=== PATIENT | male | born 1945 | race Caucasian/White ===

== ENCOUNTER 2022-10-07 23:53 | Emergency (ER) | payer MEDICARE ==
[2022-10-08] MEDS ORDERED: Sodium Chloride 0.9% 1000 ML 1,000 ML IV STA ×2 (00:33→01:07)
[2022-10-08] MEDS ORDERED: Sodium Chloride 0.9% 1000 ML 1,000 ML ONE ×2 (00:34→01:11)
[2022-10-08 00:45] LABS: Absolute Neutrophil Ct (ANC) 7.52 x10^3/uL (1.4-6.9); BASOPHIL % 0.1 % (0.0-0.4); Basophil (Absolute #) 0.01 x10^3/uL (0-0.4); Eosinophil (Absolute #) 0 x10^3/uL (0-0.5); Hematocrit 35.5 % (42-50); IMMATURE GRAN # 0.03 x10^3u/L (0.00-0.03); IMMATURE GRAN % 0.3 % (0.00-0.4); Lymphocyte (Absolute #) 0.65 x10^3/uL (1.0-4.6); Lymphocytes % 7.1 % (24.0-44.0); Mean Cell Volume 95.7 fL (78-100); Mean Corpuscular Hemoglobin 32.3 pg (26-32); Mean Corpuscular Hgb Concent. 33.8 g/dL (32-36); Mean Platelet Volume 9.5 fL (7.5-11.0); Monocytes % 9.9 % (0.0-12.0); Neutrophil % 82.6 % (36.0-66.0); Platelet Count 361 x10^3/uL (150-450); Red Blood Count 3.71 x10^6/uL (4.1-5.6); Red Cell Distribution Width 12.1 % (11.5-14.0); White Blood Count 9.1 x10^3/uL (4.0-10.5)
--- NOTE | 2022-10-08 00:47 | ERPHSYRPT ---
- History of Present Illness Source: patient, other () Exam Limitations: other () Patient Subjective Stated Complaint: pt states he had hernia surgery this am with dr jones and has voided a little less than 200ml since coming home. states he was told by discharging nurses to come to er if he did not have at lease 200ml out by midnight Triage Nursing Assessment: pt alert and oriented, answers questions approp. pt ambulatory with steady gait noted, respirations nonlabored. 3 incision sites to abd covered with drsgs- cdi. bowel sounds hypo. Physician History: 77 yo wm who underwent a laparoscopic L inguinal hernia repair today complains of decreased urination. Pt states that he was told to come to the ER if he does not produce 200ml of urine by 00:00, and he was just short of 200ml. He denies urinary retention. Pt has had nausea/vomiting x3 which was most likely caused by his [place]. He is a Type1 diabetic who uses an insulin pump, and glucose is in the 200's. Chest pain/dyspnea/fever are all denied. His pain is minimal at best. Timing/Duration: today Severity: mild Modifying Factors: Improves With: nothing Associated Symptoms: denies symptoms, nausea, vomiting Allergies/Adverse Reactions: No Known Drug Allergies Allergy (Verified 10/08/22 00:31) Home Medications: Amlodipine Besylate 5 mg [Norvasc 5 mg] 5 mg PO DAILY 10/08/22 [History] Insulin Aspart [NovoLOG Insulin] 0 unit SQ UD 10/08/22 [History] Losartan Potassium 50 mg [Cozaar 50 MG] 50 mg PO BID 10/08/22 [History] Pravastatin Sodium 20 mg PO HS 10/08/22 [History] hydroCHLOROthiazide [Hydrochlorothiazide] 12.5 mg PO BID 10/08/22 [History] Hx Tetanus, Diphtheria Vaccination/Date Given: Yes Hx Influenza Vaccination/Date Given: Yes Hx Pneumococcal Vaccination/Date Given: Yes Immunizations Up to Date: Yes Travel Risk - International Travel Have you traveled outside of the country in past 3 weeks: No - Coronavirus Screening Are you exhibiting any of the following symptoms?: No Close contact with a COVID-19 positive Pt in past 14-21 Days: No - Vaccine Status Have you recieved a Covid-19 vaccination: Yes 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 - Vaccination Dates Date of 2cond Vaccination (if applicable): 11/16/2020 - Review of Systems Constitutional: No Symptoms Eyes: No Symptoms Ears, Nose, & Throat: No Symptoms Respiratory: No Symptoms Cardiac: No Symptoms Abdominal/Gastrointestinal: No Symptoms, Nausea, Vomiting Genitourinary Symptoms: No Symptoms Musculoskeletal: No Symptoms Skin: No Symptoms Neurological: No Symptoms Psychological: No Symptoms Endocrine: No Symptoms Hematologic/Lymphatic: No Symptoms Immunological/Allergic: No Symptoms - Past Medical History ENT History: Cataracts Cardiac History: High Cholesterol, Hypertension Endocrine Medical History: Diabetes Type I - Past Surgical History Past Surgical History: Yes Musculoskeletal: Orthopedic Surgery Other Surgical History: foot surgery, eyelid lift - Social History Smoking Status: Never smoker Exposure to second hand smoke: No Drug Use: none Patient Lives Alone: No - Nursing Vital Signs Nursing Vital Signs: Initial Vital Signs Temperature 98.4 F 10/08/22 00:01 Pulse Rate 80 10/08/22 00:01 Respiratory Rate 18 10/08/22 00:01 Blood Pressure 130/58 10/08/22 00:01 O2 Sat by Pulse Oximetry 98 10/08/22 00:01 Pain Scale Pain Intensity 3 WNL - Physical Exam General Appearance: no apparent distress, anxiety Eye Exam: PERRL/EOMI, eyes nml inspection Ears, Nose, Throat Exam: normal ENT inspection, TMs normal, pharynx normal, moist mucous membranes Neck Exam: normal inspection, non-tender, supple, full range of motion, No meningismus, No mass, No Brudzinski, No Kernig's, No carotid bruit Respiratory Exam: normal breath sounds, lungs clear, airway intact, No respiratory distress Cardiovascular Exam: regular rate/rhythm, normal heart sounds, normal peripheral pulses, capillary refill <2 sec, No murmur Gastrointestinal/Abdomen Exam: soft, normal bowel sounds, other (laparoscopy incisions clean/dry/intact), No tenderness Back Exam: normal inspection, normal range of motion, No CVA tenderness Extremity Exam: normal inspection, normal range of motion Neurologic Exam: alert, oriented x 3, cooperative, vp analytics II-XII nml as tested, normal mood/affect, nml cerebellar function, nml station & gait, sensation nml Skin Exam: normal color, warm, dry Lymphatic Exam: adenopathy SpO2 Interpretation: normal SpO2: 98 O2 Delivery: Room Air - Course Nursing assessment & vital signs reviewed: Yes - CT Exams Abdomen/Pelvis CT Interpretation: Discussed w/radiologist, Tele-radiologist Report (Small amount of free intraperitoneal gas most likely related to Lap inguinal hernia today/rad called w report/Small amount of gas within urinary bladder) Ordered Tests: Active Orders 24 hr Category Date Time Status IV Insertion STAT Care 10/08/22 00:43 Completed ABDOMEN AND PELVIS W/0 CONTRAS [CT] Stat Exams 10/08/22 00:33 Taken CBC W DIFF Stat Lab 10/08/22 00:40 Completed CMP Stat Lab 10/08/22 00:40 Completed CULTURE,URINE Stat Lab 10/08/22 01:23 Received UA W/RFX UR CULTURE Stat Lab 10/08/22 01:23 Completed Medication Summary Discontinued Medications Generic Name Dose Route Start Last Admin Trade Name Freq PRN Reason Stop Dose Admin Sodium Chloride 1,000 mls @ 999 mls/hr 10/08/22 00:33 10/08/22 02:57 Sodium Chloride 0.9% 1000 Ml IV 10/08/22 01:33 Infused .Q1H1M STA Infusion Sodium Chloride Confirm 10/08/22 00:34 Sodium Chloride 0.9% 1000 Ml Administered 10/08/22 00:35 Dose 1,000 mls @ ud .ROUTE .STK-MED ONE Sodium Chloride 1,000 mls @ 999 mls/hr 10/08/22 01:07 10/08/22 02:57 Sodium Chloride 0.9% 1000 Ml IV 10/08/22 02:07 Infused .Q1H1M STA Infusion Sodium Chloride Confirm 10/08/22 01:11 Sodium Chloride 0.9% 1000 Ml Administered 10/08/22 01:12 Dose 1,000 mls @ ud .ROUTE .STK-MED ONE Ceftriaxone Sodium/Dextrose 1 g in 50 mls @ 100 mls/hr 10/08/22 01:46 10/08/22 02:58 Rocephin 1 Gm-D5w 50 Ml Bag IV 10/08/22 02:15 Infused STAT STA Infusion Ceftriaxone Sodium/Dextrose Confirm 10/08/22 01:50 Rocephin 1 Gm-D5w 50 Ml Bag Administered 10/08/22 01:51 Dose 1 g in 50 mls @ ud IV .STK-MED ONE Lab/Rad Data: Laboratory Result Diagrams 10/08/22 00:40 10/08/22 00:40 Laboratory Results 10/08/22 10/08/22 10/08/22 Range/Units 01: 00:40 00:40 WBC 9.1 (4.0-10.5) x10^3/uL RBC 3.71 L (4.1-5.6) x10^6/uL Hgb 12.0 L (12.5-18.0) g/dL Hct 35.5 L (42-50) % MCV 95.7 (78-100) fL MCH 32.3 H (26-32) pg MCHC 33.8 (32-36) g/dL RDW 12.1 (11.5-14.0) % Plt Count 361 (150-450) x10^3/uL MPV 9.5 (7.5-11.0) fL Gran % 82.6 H (36.0-66.0) % Immature Gran % (Auto) 0.3 (0.00-0.4) % Nucleat RBC Rel Count 0.0 (0.00-0.1) % Eos # (Auto) 0 (0-0.5) x10^3/uL Immature Gran # (Auto) 0.03 (0.00-0.03) x10^3u/L Absolute Lymphs (auto) 0.65 L (1.0-4.6) x10^3/uL Absolute Monos (auto) 0.90 (0.0-1.3) x10^3/uL Absolute Nucleated RBC 0.00 (0.00-0.01) x10^3u/L Lymphocytes % 7.1 L (24.0-44.0) % Monocytes % 9.9 (0.0-12.0) % Eosinophils % 0.0 (0.00-5.0) % Basophils % 0.1 (0.0-0.4) % Absolute Granulocytes 7.52 H (1.4-6.9) x10^3/uL Basophils # 0.01 (0-0.4) x10^3/uL Sodium 129 L (137-145) mmol/L Potassium 3.9 (3.5-5.1) mmol/L Chloride 91 L (98-107) mmol/L Carbon Dioxide 27 (22-30) mmol/L Anion Gap 14.2 (5-15) MEQ/L BUN 39 H (9-20) mg/dL Creatinine 1.40 H (0.66-1.25) mg/dL Estimated GFR 52.5 ML/MIN Glucose 190 H (74-106) mg/dL Calcium 8.7 (8.4-10.2) mg/dL Total Bilirubin 1.30 (0.2-1.3) mg/dL AST 38 (17-59) U/L ALT 23 (0-50) U/L Alkaline Phosphatase 64 (38-126) U/L Serum Total Protein 6.9 (6.3-8.2) g/dL Albumin 4.2 (3.5-5.0) g/dL Urine Color Yellow (Yellow) Urine Appearance Cloudy A (Clear) Urine pH 5.5 (4.6-8.0) Ur Specific [place] 1.020 (1.005-1.030) Urine Protein Trace A (Negative) Urine Glucose (UA) Negative (Negative) mg/dL Urine Ketones Trace A (Negative) Urine Blood Negative (Negative) Urine Nitrite Negative (Negative) Urine Bilirubin Negative (Negative) Urine Urobilinogen 0.2 (0.2) mg/dL Ur Leukocyte Esterase Small A (Negative) U Hyaline Cast (Auto) 6-10 A (0-2) /LPF Urine Microscopic RBC 6-10 A (0-5) /HPF Urine Microscopic WBC 6-10 A (0-5) /HPF Ur Epithelial Cells Rare (None Seen) /HPF Urine Bacteria None Seen (None Seen) /HPF Urine Culture Reflexed YES (NO) - Progress Progress: improved Progress Note: 10/08/22 01:30 Nursing note and vital sides reviewed No food or housing insecurities noted Guzman placed and 150ml drained Telerad called and stated that pt has small amount of free air which is most l ikely due to laparoscopic inguinal hernia 1L NS x2 for pre-renal azotemia 1gm IV rocephin for UTI Urine output increased and Guzman removed All lab results reviewed and shared w pt 10/08/22 02:26 10/08/22 02:39 10/08/22 02:41 Counseled pt/family regarding: lab results, diagnosis, need for follow-up Medical Desision Making - Diagnostic Testing Diagnostic test were ordered, analyzed, and reviewed by me: Yes Radiological Interpretation: Discussed w/ radiologist, Teleradiologist Report - Risk of complications The pt has a mod risk of morbidity or mortality based on: Need for prescription drug management - Departure Departure Disposition: Home Clinical Impression: UTI (urinary tract infection), Mild dehydration Condition: Stable Critical Care Time: No Referrals: ADALID SÁNCHEZ MD [Primary Care Provider] - Follow up/PCP as directed Instructions: Dehydration, Adult (DC), Urinary Tract Infection, Adult (DC) Additional Instructions: Fluids Follow up with your surgeon on Monday Bactrim twice a day for 3 days Return to ER as needed Prescriptions: Smz/Tmp Ds Tablet [Bactrim Ds Tablet] 1 tab PO Q12H 3 Days #6 tablet
[2022-10-08 01:01] LABS: ALBUMIN 4.2 g/dL (3.5-5.0); ANION GAP 14.2 MEQ/L (5-15); BILIRUBIN,TOTAL 1.3 mg/dL (0.2-1.3); Calcium 8.7 mg/dL (8.4-10.2); Creatinine 1 1.4 mg/dL (0.66-1.25); EST GLOMERULAR FILTRATION RATE 52.5 ML/MIN; Potassium 3.9 mmol/L (3.5-5.1); Total Protein 6.9 g/dL (6.3-8.2)
[2022-10-08 01:42] LABS: Appearance Cloudy (Clear); Bacteria None Seen /HPF (None Seen); Bilirubin Negative (Negative); Blood Negative (Negative); Epithelial Cells Rare /HPF (None Seen); Glucose, Urine Negative (Negative); Ketones Trace (Negative); Leukocyte Esterase Small (Negative); Nitrite Negative (Negative); Ph 5.5 (4.6-8.0); Protein,Urine Dip Trace (Negative); Urobilinogen 0.2 mg/dL (0.2)
[2022-10-08 01:44] LABS: ADD URINE CULTURE? YES (NO)
[2022-10-08] MEDS ORDERED: ROCEPHIN 1 Gm-D5w 50 ml Bag** 1 G/50 ML IVPB IV STA (01:46)
[2022-10-08] MEDS ORDERED: ROCEPHIN 1 Gm-D5w 50 ml Bag** 1 G/50 ML IVPB IV ONE (01:50)
[2022-10-08 02:59] VITALS: BP 118/49; PULSE 65
[2022-10-08 04:55] VITALS: O2SAT 98
--- NOTE | 2022-10-08 08:19 | XRAY ---
Indication: Abdomen pain. Status post hernia surgery one day earlier. Dehydration. Multiple contiguous axial images obtained through the abdomen and pelvis without contrast. Comparison: None Lung bases demonstrates mild bibasilar subsegmental atelectasis/scarring. No infiltrate or effusion. Heart is not enlarged. Small hiatal hernia. Small free air throughout abdomen/pelvis, tiny left groin subcutaneous air bubbles, and tiny air bubbles both scrotum are all presumed postoperative. No free fluid or walled off fluid collection. Noncontrasted stomach and bowel loops appear nonobstructed with normal appendix. Mild diffuse scattered colonic fecal debris throughout. Urinary bladder demonstrates intraluminal air bubbles either iatrogenic from recent catheterization versus gas-forming infection. Gallbladder moderately distended without gallstones or biliary distention. Mild fatty liver. Remaining liver, gallbladder, pancreas, spleen, adrenal glands, kidneys, ureters, and bladder are unremarkable for noncontrast exam. Mild scattered aortoiliac calcifications without AAA. Osseous structures intact with osteopenia, moderate degenerative changes throughout thoracolumbar spine, moderate dextroscoliosis centered at L3, and moderate degenerative changes both hips. No ventral hernia. Incidental bilateral vasectomy clips. Impression: 1. Status post left inguinal hernia repair with postoperative changes. 2. Urinary bladder intraluminal air bubbles either iatrogenic versus gas-forming infection. 3. Mild diffuse fecal stasis. 4. Distended gallbladder without gallstones. 5. Chronic findings including hiatal hernia, fatty liver, arteriosclerotic disease, and chronic bony findings. Comment: Preliminary interpretation made by [facility]. No critical discrepancy.
== END 2022-10-08 03:05 | disposition home or self-care (01) ==
LOC: ED 23:53
DX: N39.0 Urinary tract infection, site not specified (principal); E86.0 Dehydration; R11.2 Nausea with vomiting, unspecified; E10.65 Type 1 diabetes mellitus with hyperglycemia; E78.5 Hyperlipidemia, unspecified; I10 Essential (primary) hypertension; Z96.41 Presence of insulin pump (external) (internal); Z79.4 Long term (current) use of insulin; Z79.891 Long term (current) use of opiate analgesic; Z79.899 Other long term (current) drug therapy
CPT/HCPCS: 36000; 36415; 74176; 80053; 81001; 85025; 87086; 96360; 99284; P9612; 96365; J0696

== ENCOUNTER 2024-02-18 10:36 | Emergency (ER) | payer MEDICARE ==
[2024-02-18 11:01] VITALS: TEMP 96.8
[2024-02-18] MEDS ORDERED: Sodium Chloride 0.9% 1000 ML 1,000 ML ONE ×2 (11:04→13:14)
[2024-02-18] MEDS: Sodium Chloride 0.9% 1000 ML 1,000 ML IV SCH (11:04)
--- NOTE | 2024-02-18 11:04 | ERPHSYRPT ---
- History of Present Illness Time Seen by Provider: 02/18/24 10:38 Source: patient, EMS Exam Limitations: no limitations Physician History: Reportedly pt was at [employer] and had a syncopal episode with tremors and diaphoresis, was given glucose and revived. EMS states pt had a B.S. of 155 and BP of 115/58 and had about 20 seconds of LOC and tremors. Pt denies any chest p ain, shortness of air, fever, headache, abdominal pain, nausea, vomiting; admits to a cough productive of yellow phlegm for the past month. Allergies/Adverse Reactions: No Known Drug Allergies Allergy (Verified 02/18/24 11:02) Home Medications: Amlodipine Besylate 5 mg [Norvasc 5 mg] 5 mg PO DAILY 10/08/22 [History] Insulin Aspart [NovoLOG Insulin] 0 unit SQ UD 10/08/22 [History] Losartan Potassium 50 mg [Cozaar 50 MG] 50 mg PO BID 10/08/22 [History] Pravastatin Sodium 20 mg PO HS 10/08/22 [History] hydroCHLOROthiazide [Hydrochlorothiazide] 12.5 mg PO BID 10/08/22 [History] Hx Tetanus, Diphtheria Vaccination/Date Given: Yes Hx Influenza Vaccination/Date Given: Yes Hx Pneumococcal Vaccination/Date Given: Yes - Past Medical History ENT History: Cataracts Cardiac History: High Cholesterol, Hypertension Endocrine Medical History: Diabetes Type I - Past Surgical History Past Surgical History: Yes Musculoskeletal: Orthopedic Surgery Other Surgical History: foot surgery, eyelid lift - Social History Smoking Status: Never smoker Exposure to second hand smoke: No Drug Use: none Patient Lives Alone: No - Review of Systems Constitutional: No Fever Respiratory: Cough, No Dyspnea Cardiac: No Chest Pain Abdominal/Gastrointestinal: No Abdominal Pain, No Nausea, No Vomiting Genitourinary Symptoms: No Dysuria Neurological: No Headache Physical Exam - Nursing Vital Signs Nursing Vital Signs: Initial Vital Signs Temperature 96.8 F 02/18/24 10:47 Pulse Rate 72 02/18/24 10:47 Respiratory Rate 19 02/18/24 10:47 Blood Pressure 124/63 02/18/24 10:47 O2 Sat by Pulse Oximetry 97 02/18/24 10:47 Pain Scale Pain Intensity 0 - Spreckels Coma Scale Best Eye Response (Spreckels): (4) open spontaneously Best Verbal Response (Spreckels): (5) oriented Best Motor Response (Mohini): (6) obeys commands Spreckels Total: 15 - Physical Exam General Appearance: alert Eye Exam: bilateral eye: PERRL, EOMI Ears, Nose, Throat Exam: TMs normal, pharyngeal erythema (mild) Neck Exam: normal inspection Respiratory: lungs clear, airway intact Cardiovascular: normal heart sounds Gastrointestinal: normal bowel sounds Back Exam: normal inspection Extremity Exam: normal range of motion Peripheral Pulses: dorsalis-pedis (R): 1+, dorsalis-pedis (L): 1+ Mental Status: alert, oriented x 3, cooperative senior bioinformatics specialist Exam: normal hearing, normal speech, PERRL, tongue midline Motor/Sensory: no motor deficit, sensory deficit (decreased sensation in right small finger since childhood) Skin Exam: normal color, warm, dry - Course EKG Interpreted by Me: RATE (70), Left Lenorah Deviation, Other (QTc = 438; PAC's.) - Radiology Exams Chest X-ray Interpretation: Teleradiologist Report (No acute findings. See rest of report.) - CT Exams Head CT Interpretation: Tele-radiologist Report (No intracranial hemorrhage. See rest of report.) Ordered Tests: Active Orders 24 hr Category Date Time Status EKG-ER Only STAT Care 02/18/24 10:56 Active EKG-ER Only STAT Care 02/18/24 13:28 Active IV Insertion STAT Care 02/18/24 10:56 Active CHEST 2 VIEWS (PA AND LAT) Stat Exams 02/18/24 10:57 Completed HEAD WITHOUT CONTRAST [CT] Stat Exams 02/18/24 10:58 Completed AMYLASE Stat Lab 02/18/24 11:10 Completed CBC W DIFF Stat Lab 02/18/24 11:10 Completed CMP Stat Lab 02/18/24 11:10 Completed LIPASE Stat Lab 02/18/24 11:10 Completed MAGNESIUM Stat Lab 02/18/24 11:10 Completed TROPONIN Q4H Lab 02/18/24 11:10 Completed TROPONIN Q4H Lab 02/18/24 13:40 Completed TROPONIN Q4H Lab 02/18/24 19:00 Ordered UA W/RFX UR CULTURE Stat Lab 02/18/24 13:32 Completed Urine Triage Profile Stat Lab 02/18/24 13:32 Completed Medication Summary Generic Name Dose Route Start Last Admin Trade Name Freq PRN Reason Stop Dose Admin Sodium Chloride 1,000 mls @ 100 mls/hr 02/18/24 11:00 02/18/24 13:14 Sodium Chloride 0.9% 1000 Ml IV 03/19/24 10:59 Infused .Q10H PRAVEENA Infusion Discontinued Medications Generic Name Dose Route Start Last Admin Trade Name Carline PRN Reason Stop Dose Admin Sodium Chloride 1,000 mls @ 999 mls/hr 02/18/24 12:17 02/18/24 13:16 Sodium Chloride 0.9% 1000 Ml IV 02/18/24 13:17 999 mls/hr .Q1H1M STA Administration Lab/Rad Data: Laboratory Result Diagrams 02/18/24 11:10 02/18/24 11:10 Laboratory Results 02/18/24 02/18/24 02/18/24 Range/Units 13:40 13:32 13:32 WBC (4.23-9.07) x10^3/uL RBC (4.63-6.08) x10^6/uL Hgb (13.7-17.5) g/dL Hct (40.1-51.0) % MCV (79.0-92.2) fL MCH (25.7-32.2) pg MCHC (32.3-36.5) g/dL RDW (11.6-14.4) % Plt Count (163-337) x10^3/uL MPV (9.4-12.4) fL Gran % (34.0-67.9) % Immature Gran % (Auto) (0.001-0.429) % Nucleat RBC Rel Count (0.00-0.2) % Eos # (Auto) (0.04-0.54) x10^3/uL Immature Gran # (Auto) (0.001-0.031) x10^3u/L Absolute Lymphs (auto) (1.32-3.57) x10^3/uL Absolute Monos (auto) (0.30-0.82) x10^3/uL Absolute Nucleated RBC (0.00-0.012) x10^3u/L Lymphocytes % (21.8-53.1) % Monocytes % (5.3-12.2) % Eosinophils % (0.8-7.0) % Basophils % (0.2-1.2) % Absolute Granulocytes (1.78-5.38) x10^3/uL Basophils # (0.01-0.08) x10^3/uL Sodium (135-145) mmol/L Potassium (3.5-5.1) mmol/L Chloride (98-107) mmol/L Carbon Dioxide (22-30) mmol/L Anion Gap (5-15) MEQ/L BUN (9-20) mg/dL Creatinine (0.66-1.25) mg/dL Estimated GFR ML/MIN Glucose (74-106) mg/dL Calcium (8.4-10.2) mg/dL Magnesium (1.6-2.3) mg/dL Total Bilirubin (0.2-1.3) mg/dL AST (17-59) U/L ALT (0-50) U/L Alkaline Phosphatase (38-126) U/L Troponin I < 0.012 (0.000-0.033) ng/mL Serum Total Protein (6.3-8.2) g/dL Albumin (3.5-5.0) g/dL Amylase (30-110) U/L Lipase (23-300) U/L Urine Color Yellow (Yellow) Urine Appearance Clear (Clear) Urine pH 6.0 (4.6-8.0) Ur Specific [place] 1.020 (1.005-1.030) Urine Protein Negative (Negative) Urine Glucose (UA) Negative (Negative) mg/dL Urine Ketones 15 A (Negative) Urine Blood Negative (Negative) Urine Nitrite Negative (Negative) Urine Bilirubin Negative (Negative) Urine Urobilinogen 0.2 (0.2) mg/dL Ur Leukocyte Esterase Negative (Negative) U Hyaline Cast (Auto) 3-5 A (0-2) /LPF Urine Microscopic RBC 0-2 (0-5) /HPF Urine Microscopic WBC 0-2 (0-5) /HPF Ur Epithelial Cells None Seen (None Seen) /HPF Urine Bacteria None Seen (None Seen) /HPF Urine Culture Reflexed NO (NO) Urine Opiates Level NEGATIVE (NEGATIVE) Ur Methadone NEGATIVE (NEGATIVE) Urine Barbiturates NEGATIVE (NEGATIVE) Ur Phencyclidine (PCP) NEGATIVE (NEGATIVE) Urine Amphetamine NEGATIVE (NEGATIVE) U Benzodiazepine Level NEGATIVE (NEGATIVE) Urine Cocaine NEGATIVE (NEGATIVE) Urine Marijuana (THC) NEGATIVE (NEGATIVE) Influenza Type A Ag (NEGATIVE) Influenza Type B Ag (NEGATIVE) RSV (PCR) (NEGATIVE) SARS-CoV-2 (PCR) (NEGATIVE) Group A Strep Antibody (NEGATIVE) 02/18/24 02/18/24 02/18/24 Range/Units 11:21 11:21 11:10 WBC (4.23-9.07) x10^3/uL RBC (4.63-6.08) x10^6/uL Hgb (13.7-17.5) g/dL Hct (40.1-51.0) % MCV (79.0-92.2) fL MCH (25.7-32.2) pg MCHC (32.3-36.5) g/dL RDW (11.6-14.4) % Plt Count (163-337) x10^3/uL MPV (9.4-12.4) fL Gran % (34.0-67.9) % Immature Gran % (Auto) (0.001-0.429) % Nucleat RBC Rel Count (0.00-0.2) % Eos # (Auto) (0.04-0.54) x10^3/uL Immature Gran # (Auto) (0.001-0.031) x10^3u/L Absolute Lymphs (auto) (1.32-3.57) x10^3/uL Absolute Monos (auto) (0.30-0.82) x10^3/uL Absolute Nucleated RBC (0.00-0.012) x10^3u/L Lymphocytes % (21.8-53.1) % Monocytes % (5.3-12.2) % Eosinophils % (0.8-7.0) % Basophils % (0.2-1.2) % Absolute Granulocytes (1.78-5.38) x10^3/uL Basophils # (0.01-0.08) x10^3/uL Sodium (135-145) mmol/L Potassium (3.5-5.1) mmol/L Chloride (98-107) mmol/L Carbon Dioxide (22-30) mmol/L Anion Gap (5-15) MEQ/L BUN (9-20) mg/dL Creatinine (0.66-1.25) mg/dL Estimated GFR ML/MIN Glucose (74-106) mg/dL Calcium (8.4-10.2) mg/dL Magnesium (1.6-2.3) mg/dL Total Bilirubin (0.2-1.3) mg/dL AST (17-59) U/L ALT (0-50) U/L Alkaline Phosphatase (38-126) U/L Troponin I < 0.012 (0.000-0.033) ng/mL Serum Total Protein (6.3-8.2) g/dL Albumin (3.5-5.0) g/dL Amylase (30-110) U/L Lipase (23-300) U/L Urine Color (Yellow) Urine Appearance (Clear) Urine pH (4.6-8.0) Ur Specific [place] (1.005-1.030) Urine Protein (Negative) Urine Glucose (UA) (Negative) mg/dL Urine Ketones (Negative) Urine Blood (Negative) Urine Nitrite (Negative) Urine Bilirubin (Negative) Urine Urobilinogen (0.2) mg/dL Ur Leukocyte Esterase (Negative) U Hyaline Cast (Auto) (0-2) /LPF Urine Microscopic RBC (0-5) /HPF Urine Microscopic WBC (0-5) /HPF Ur Epithelial Cells (None Seen) /HPF Urine Bacteria (None Seen) /HPF Urine Culture Reflexed (NO) Urine Opiates Level (NEGATIVE) Ur Methadone (NEGATIVE) Urine Barbiturates (NEGATIVE) Ur Phencyclidine (PCP) (NEGATIVE) Urine Amphetamine (NEGATIVE) U Benzodiazepine Level (NEGATIVE) Urine Cocaine (NEGATIVE) Urine Marijuana (THC) (NEGATIVE) Influenza Type A Ag NEGATIVE (NEGATIVE) Influenza Type B Ag NEGATIVE (NEGATIVE) RSV (PCR) NEGATIVE (NEGATIVE) SARS-CoV-2 (PCR) NEGATIVE (NEGATIVE) Group A Strep Antibody NOT DETECTED (NEGATIVE) 02/18/24 02/18/24 02/18/24 Range/Units 11:10 11:10 11:10 WBC 8.3 (4.23-9.07) x10^3/uL RBC 4.00 L (4.63-6.08) x10^6/uL Hgb 12.9 L (13.7-17.5) g/dL Hct 38.2 L (40.1-51.0) % MCV 95.5 H (79.0-92.2) fL MCH 32.3 H (25.7-32.2) pg MCHC 33.8 (32.3-36.5) g/dL RDW 11.8 (11.6-14.4) % Plt Count 385 H (163-337) x10^3/uL MPV 9.7 (9.4-12.4) fL Gran % 54.4 (34.0-67.9) % Immature Gran % (Auto) 0.2 (0.001-0.429) % Nucleat RBC Rel Count 0.0 (0.00-0.2) % Eos # (Auto) 0.10 (0.04-0.54) x10^3/uL Immature Gran # (Auto) 0.02 (0.001-0.031) x10^3u/L Absolute Lymphs (auto) 2.85 (1.32-3.57) x10^3/uL Absolute Monos (auto) 0.77 (0.30-0.82) x10^3/uL Absolute Nucleated RBC 0.00 (0.00-0.012) x10^3u/L Lymphocytes % 34.2 (21.8-53.1) % Monocytes % 9.2 (5.3-12.2) % Eosinophils % 1.2 (0.8-7.0) % Basophils % 0.8 (0.2-1.2) % Absolute Granulocytes 4.52 (1.78-5.38) x10^3/uL Basophils # 0.07 (0.01-0.08) x10^3/uL Sodium 136 (135-145) mmol/L Potassium 4.1 (3.5-5.1) mmol/L Chloride 101 (98-107) mmol/L Carbon Dioxide 24 (22-30) mmol/L Anion Gap 13.8 (5-15) MEQ/L BUN 29 H (9-20) mg/dL Creatinine 1.08 (0.66-1.25) mg/dL Estimated GFR 71.1 ML/MIN Glucose 169 H (74-106) mg/dL Calcium 9.7 (8.4-10.2) mg/dL Magnesium 2.1 (1.6-2.3) mg/dL Total Bilirubin 0.80 (0.2-1.3) mg/dL AST 30 (17-59) U/L ALT 22 (0-50) U/L Alkaline Phosphatase 78 (38-126) U/L Troponin I (0.000-0.033) ng/mL Serum Total Protein 6.6 (6.3-8.2) g/dL Albumin 4.2 (3.5-5.0) g/dL Amylase 81 (30-110) U/L Lipase 80 (23-300) U/L Urine Color (Yellow) Urine Appearance (Clear) Urine pH (4.6-8.0) Ur Specific [place] (1.005-1.030) Urine Protein (Negative) Urine Glucose (UA) (Negative) mg/dL Urine Ketones (Negative) Urine Blood (Negative) Urine Nitrite (Negative) Urine Bilirubin (Negative) Urine Urobilinogen (0.2) mg/dL Ur Leukocyte Esterase (Negative) U Hyaline Cast (Auto) (0-2) /LPF Urine Microscopic RBC (0-5) /HPF Urine Microscopic WBC (0-5) /HPF Ur Epithelial Cells (None Seen) /HPF Urine Bacteria (None Seen) /HPF Urine Culture Reflexed (NO) Urine Opiates Level (NEGATIVE) Ur Methadone (NEGATIVE) Urine Barbiturates (NEGATIVE) Ur Phencyclidine (PCP) (NEGATIVE) Urine Amphetamine (NEGATIVE) U Benzodiazepine Level (NEGATIVE) Urine Cocaine (NEGATIVE) Urine Marijuana (THC) (NEGATIVE) Influenza Type A Ag (NEGATIVE) Influenza Type B Ag (NEGATIVE) RSV (PCR) (NEGATIVE) SARS-CoV-2 (PCR) (NEGATIVE) Group A Strep Antibody (NEGATIVE) - Progress Progress: improved Progress Note: 02/18/24 13:49 EKG @ 1345: rate = 83, sinus rhythm with PAC's, QTc = 479, LAD. 02/18/24 14:21 Pt does not want to stay in the hospital; has an appointment with Dr. Sánchez in 4 days and will talk with him about seeing a senior business broker. Counseled pt/family regarding: lab results, diagnosis, need for follow-up, rad results Medical Desision Making - Diagnostic Testing Diagnostic test were ordered, analyzed, and reviewed by me: Yes Radiological Interpretation: Teleradiologist Report - Departure Departure Disposition: Home Clinical Impression: Syncope Condition: Stable Critical Care Time: No Referrals: ADALID SÁNCHEZ MD [Primary Care Provider] - Follow up/PCP as directed Instructions: Syncope (Fainting) (DC) Additional Instructions: Follow up with Dr. Sánchez as scheduled.
[2024-02-18 11:30] LABS: Absolute Neutrophil Ct (ANC) 4.52 x10^3/uL (1.78-5.38); BASOPHIL % 0.8 % (0.2-1.2); Basophil (Absolute #) 0.07 x10^3/uL (0.01-0.08); Eosinophil % 1.2 % (0.8-7.0); Hematocrit 38.2 % (40.1-51.0); Hemoglobin 12.9 g/dL (13.7-17.5); IMMATURE GRAN # 0.02 x10^3u/L (0.001-0.031); IMMATURE GRAN % 0.2 % (0.001-0.429); Lymphocyte (Absolute #) 2.85 x10^3/uL (1.32-3.57); Lymphocytes % 34.2 % (21.8-53.1); Mean Cell Volume 95.5 fL (79.0-92.2); Mean Corpuscular Hemoglobin 32.3 pg (25.7-32.2); Mean Corpuscular Hgb Concent. 33.8 g/dL (32.3-36.5); Mean Platelet Volume 9.7 fL (9.4-12.4); Monocyte (Absolute #) 0.77 x10^3/uL (0.30-0.82); Monocytes % 9.2 % (5.3-12.2); Neutrophil % 54.4 % (34.0-67.9); Platelet Count 385 x10^3/uL (163-337); Red Cell Distribution Width 11.8 % (11.6-14.4); White Blood Count 8.3 x10^3/uL (4.23-9.07)
[2024-02-18 11:44] LABS: ALBUMIN 4.2 g/dL (3.5-5.0); ANION GAP 13.8 MEQ/L (5-15); BILIRUBIN,TOTAL 0.8 mg/dL (0.2-1.3); Calcium 9.7 mg/dL (8.4-10.2); Creatinine 1 1.08 mg/dL (0.66-1.25); EST GLOMERULAR FILTRATION RATE 71.1 ML/MIN; Potassium 4.1 mmol/L (3.5-5.1); Total Protein 6.6 g/dL (6.3-8.2)
[2024-02-18 12:07] LABS: INFLUENZA A NEGATIVE (NEGATIVE); INFLUENZA B NEGATIVE (NEGATIVE); RESPIRATORY SYNCTIAL VIRUS NEGATIVE (NEGATIVE); SARS-CoV-2 Xpert Express NEGATIVE (NEGATIVE)
--- NOTE | 2024-02-18 12:07 | XRAY ---
CLINICAL HISTORY: syncope COMPARISON: None. TECHNIQUE: CR Chest (2 views) PA and lateral views. FINDINGS: Prominent calcific aortic arch. Prominent hilar pulmonary vascularities more on the right side, could be pulmonary congestion, clinical correlation is needed. Both lungs are clear. No sizable nodules, consolidation or masses. Both costophrenic angles are free. No sizable pleural effusion or thickening. Normal cardiac size and shape, normal atherosclerotic calcification of the aortic arch, and no pericardial effusion. Unremarkable thoracic bony cage with no definite fractures detected. Right glenohumeral joint arthrosis. IMPRESSION: 1. No acute findings. 2. Prominent calcific aortic arch. 3. Prominent hilar pulmonary vascularities more on the right side, could be pulmonary congestion, clinical correlation is needed. 4. Otherwise, normal chest radiograph. Electronically Signed by: Leidy Funk MD. (02/18/2024 12:03:25 EDT)
--- NOTE | 2024-02-18 12:31 | XRAY ---
CLINICAL HISTORY: syncope COMPARISON: None. TECHNIQUE: An axial non-contrast CT scan of the brain was performed from the skull base to the high parietal region with multiple reformats. One of the following dose reduction techniques were utilized for this exam: Automated exposure control, adjustment of the mA and/or kV according to patient size, use of iterative reconstruction. FINDINGS: Dilated cortical sulci, extra-axial CSF spaces, and ventricular system. Mild posterior periventricular white matter hypodensity denoting chronic white matter microvascular ischemic changes, No focal parenchymal abnormalities are demonstrated. [place]-white matter differentiation is maintained. No midline shifts or deformity. No intracerebral or extra axial hematoma. Normal CT appearance of the posterior fossa structures namely the cerebellar hemispheres, brainstem, and cerebellar peduncles. The osseous structures in the skull base are unremarkable. No definite calvarium fractures. Scanned paranasal sinuses are clear. IMPRESSION: 1. No intracranial hemorrahge. 2. No CT signs of acute infarction on CT basis. 3. Brain involutional changes in the form of age-related cortical atrophic changes. 4. Mild microvascular ischemic changes. 5. The rest of the CT brain is unremarkable. [facility] ER was called at [phone] at 11:20 AM [employer], 02/18/[address] Juan Baez was informed regarding the Negative stroke results. Electronically Signed by: Leidy Funk MD. (02/18/2024 12:28:17 EDT)
[2024-02-18 13:14] VITALS: O2SAT 96
[2024-02-18] MEDS: Sodium Chloride 0.9% 1000 ML 1,000 ML IV STA (13:16)
[2024-02-18 13:54] LABS: Appearance Clear (Clear); Bacteria None Seen /HPF (None Seen); Bilirubin Negative (Negative); Blood Negative (Negative); Epithelial Cells None Seen /HPF (None Seen); Glucose, Urine Negative (Negative); Ketones 15 (Negative); Leukocyte Esterase Negative (Negative); Nitrite Negative (Negative); Protein,Urine Dip Negative (Negative); RBC 0-2 /HPF (0-5); Urobilinogen 0.2 mg/dL (0.2); WBC 0-2 /HPF (0-5)
[2024-02-18 14:01] LABS: ADD URINE CULTURE? NO (NO)
[2024-02-18 14:05] LABS: Amphetamine,Urine NEGATIVE (NEGATIVE); Barbiturate,Urine NEGATIVE (NEGATIVE); Benzodiazepine,Urine NEGATIVE (NEGATIVE); Cocaine,Urine NEGATIVE (NEGATIVE); Methadone,Urine NEGATIVE (NEGATIVE); Opiate,Urine NEGATIVE (NEGATIVE); PCP,Urine NEGATIVE (NEGATIVE); THC,Urine NEGATIVE (NEGATIVE)
[2024-02-18 14:23] VITALS: BP 152/63; PULSE 71; RESP 23
== END 2024-02-18 14:28 | disposition home or self-care (01) ==
LOC: ED 10:36
DX: R55 Syncope and collapse (principal); R05.2 Subacute cough; E78.5 Hyperlipidemia, unspecified; I10 Essential (primary) hypertension; E10.9 Type 1 diabetes mellitus without complications; Z79.899 Other long term (current) drug therapy
CPT/HCPCS: 0241U; 36415; 70450; 71046; 80053; 80307; 81001; 82150; 83690; 83735; 84484; 85025; 87651; 93005; 96360; 96361; 99284